=== PATIENT | female | born 1975 | race Caucasian/White ===

== ENCOUNTER 2016-08-27 19:26 | Emergency (ER) | payer OTHER ==
--- NOTE | 2016-08-27 22:27 | DIAGNOSTIC IMAGING REPORT ---
PROCEDURE: XR CHEST 2 VIEW INDICATION: CHEST PAIN TECHNIQUE: PA and lateral views. COMPARISON: None. FINDINGS: Allowing for overlying wires and electrodes, lungs are clear. Heart and mediastinum are normal. Thorax is normal. IMPRESSION: 1. Negative chest.
--- NOTE | 2016-08-27 22:48 | ED ORDER SUMMARY ---
..... Patient: JOSE SPRING V OrderSheet [facility] VisitID: [id number] [address] [place] [address] 41y, F Registration Date/Time: 08/27/2016 ORDER SHEET Weight: 108.8 kg (stated) Allergies: PredniSONE, Sulfa Drugs GENERAL ORDERS: EKG - ER Stat (19:35 08/27/2016 Herbie R.N. verbal order read back to Sindy COTTRELL) (19:45 [employer] ER Wearing Apparel Assembler) CBC w Diff Urgent (19:55 08/27/2016 Herbie R.N. verbal order read back to Sindy COTTRELL) (19:56 Herbie R.N.) CMP Urgent (19:55 08/27/2016 Herbie R.N. verbal order read back to Sindy COTTRELL) (19:56 Herbie R.N.) Cardiac Panel Stat (19:55 08/27/2016 Herbie R.N. verbal order read back to Sindy COTTRELL) (19:56 Herbie R.N.) TSH Urgent (20:57 08/27/2016 PHutchinson DO) (21:04 [facility] ER Tech1) D-Dimer Urgent (21:04 08/27/2016 PHutchinson DO) (21:04 [facility] ER Tech1) Chest 2V Urgent (21:04 08/27/2016 PHutchinson DO) (Ack 21:06 [facility] ER Tech1) (21:21 RFay) Rapid Influenza Screen (Nasal Pharyngeal) (CONCILIATOR swab) Urgent (22:46 08/27/2016 PHutchinson DO) (Ack 22:51 [facility] ER Wearing Apparel Assembler) (23:06 [facility] Assembl[facility]) MEDICATION ORDERS: - (Tamiflu 75mg po) (23:09 08/27/2016 PHutchinson DO) (23:32 Herbie R.N.) IV FLUIDS: IV Saline Lock (19:55 08/27/2016 Herbie R.N. verbal order read back to Sindy COTTRELL) (19:56 Herbie R.N.) ORDER SHEET NOTES: [Electronically signed by Hola Cook R.N. (23:38 08/27/2016)] [Electronically signed by Timmy Gao DO (05:25 08/28/2016)] [Electronically locked/signed by Hola Cook R.N. (:38 08/27/2016)]
--- NOTE | 2016-08-27 22:48 | ED NURSING NOTES ---
Clinical Report - Nurses [facility] [address] [place] [address] 08/27/2016 19:27 [id number] Triage time 19:38 Aug 27 2016. Chief Complaint: CHEST PAIN. Alert. SARAH COMA SCORE: Sarah Coma Scale: 15- eyes open spontaneously (4); best verbal response- oriented x 4 (5); best motor response- obeys commands (6). --19:53 Hola Cook R.N. 19:38 08/27/16. BP: 138/70. HR: 101. RR: 16. O2 saturation: 99% on room air. Temp: 100.3 F (oral). Pain level now: 6/10. Additional comments: Substernal. --19:53 Hola Cook R.N. Weight: 108.8 kg stated. Height/Length: 66 inches Per Patient. BMI: 38.7. --19:41 Hola Cook R.N. Medications Lisinopril Oral 40 mg, daily. Verapamil HCl 120 mg , daily. Vitamins/Minerals Oral. --19:42 Hola Cook R.N. BusPIRone HCl Oral. FLUoxetine HCl Oral. --19:43 Hola Cook R.N. Levothyroxine Sodium Oral. --19:43 Hola Cook R.N. Albuterol Sulfate Inhalation. Probiotic Daily Oral. --19:44 Hola Cook R.N. Flonase Nasal. Guaifenesin-Codeine Oral. Naproxen Oral. --19:46 Hola Cook R.N. Allergies PredniSONE. (flluid around brain) Sulfa Drugs.(Anaphylaxis) --19:42 Hola Cook R.N. Medication/allergy information source: the patient. --19:53 Hola Cook R.N. History Arrived by private vehicle. Historian: patient. Accompanied by spouse. Primary physician (Shi Azevedo Everett). ( Chest Pain). This started just prior to arrival. Treatment CHIP SEPARATOR: None. PAST MEDICAL HX: Hypertension. Immunizations: status is unknown. Last normal menstrual period was 4 weeks ago. Denies current . SOCIAL HX: Smoker- current status unknown. Alcohol use; consumes one liquor drink weekly. No drug use. No infectious disease exposure. ABUSE ASSESSMENT: No report of abuse. FALL RISK ASSESSMENT: Fall risk assessment completed. No fall risk identified. NUTRITIONAL RISK ASSESSMENT: The nutritional risk assessment revealed no deficiencies. FUNCTIONAL ASSESSMENT: Functional assessment: no impairments noted. LEARNING NEEDS ASSESSMENT: The learning needs assessment revealed no barriers. SKIN INTEGRITY ASSESSMENT: Skin integrity risk assessment completed. No skin integrity risk identified. --19:53 Hola Cook R.N. PROBLEMS: Thyroid Disease. --19:49 Hola Cook R.N. ADDITIONAL SURGERIES: Cholecystectomy. Thyroid Surgery. Tubal Ligation. --19:49 Hola Cook R.N. Interventions ID band on patient. To treatment room. --19:53 Hola Cook R.N. NURSING PROGRESS NOTES 19:45 08/27/2016 Site #1 started via IV in the right antecubital space with an 20g angiocath, with aseptic technique and good blood return; one attempt. Blood drawn: rainbow set. Labeled in the presence of the patient and sent to the lab. Saline lock flushed with 10 mL saline (start by Hola Gibbs RN). --19:55 Hola Cook R.N. 20:15 08/27/16. BP: 123/65. HR: 97. RR: 18. O2 saturation: 98% on room air. --22:17 Hola Cook R.N. 21:00 08/27/16. BP: 120/79. HR: 93 (regular and normal rate). RR: 19. O2 saturation: 99% on room air. --22:19 Hola Cook R.N. 22:00 08/27/16. BP: 120/56. HR: 89. RR: 20. O2 saturation: 99% on room air. Temp: 99.6 F. --22:20 Hola Cook R.N. ED physician notified. Notified (FLU B +). --23:06 Eliecer Mcarthur, RITESH Mainstreaming Facilitator 22:55 08/27/2016 Tamiflu * PO 75 mg --23:32 Hola Cook R.N. DISPOSITION / DISCHARGE 22:55 08/27/16. BP: 116/54. HR: 93. RR: 18. O2 saturation: 99% on room air. Temp: 99.3 F (oral). Pain level now: 0/10. --23:35 oHla Cook R.N. Departure time: 2300. --23:36 Hola Cook R.N. 23:00. No learning barriers present. Discharge instructions provided and reviewed with the patient. Reviewed medication(s) dosing information (prescription given to pt). Reviewed referral to family practice. Patient verbalized understanding. Written instructions provided in Slovenian. The patient was discharged by the physician. She was discharged home and accompanied by spouse. She left the Emergency Department ambulatory and via private vehicle. Patient driving. --23:37 Hola Cook R.N. Locked/Released at 08/27/2016 23:38 by Hola Cook R.N.
--- NOTE | 2016-08-27 22:48 | ED CLINICAL REPORT ---
Clinical Report - Physicians/Mid Levels [facility] [address] [place] [address] 08/27/2016 19:27 Patient: JOSE SPRING V Time Seen: 20:52. Arrived- By private vehicle. Historian- patient. HISTORY OF PRESENT ILLNESS Chief Complaint: CHEST DISCOMFORT. At its maximum, severity described as moderate. When seen in the E.D., severity described as moderate. Modifying factors- worsened by movement. Relieved by rest. ("pushing on it" / massage has made it worse). Not worsened by deep breaths. This started just prior to arrival and is still present. It was gradual in onset and has been waxing/waning. Onset during light activity. It is described as dull. Quality not described as well localized and it is described as located in the central chest area. No radiation. No nausea, vomiting, difficulty breathing or diaphoresis. Similar symptoms previously: Recent medical care: The patient was seen recently in a clinic. Seen for similar symptoms. REVIEW OF SYSTEMS Last normal menstrual period was 4 weeks ago. No fever, chills, cough, pedal edema or calf pain. No fainting episodes, headache, sore throat, blurred vision or abdominal pain. No black stools, difficulty with urination, skin rash, enlarged lymph nodes or joint pain. No bloody stools. The patient has had moderate, intermittent palpitations. The palpitations have lasted only minutes. The palpitations seem rapid. All systems otherwise negative, except as recorded above. PAST HISTORY Primary physician (Shi Azevedo Everett) Anxiety with panic attacks. Depression. Thyroid Disease Hypertension. Asthma. Syncopal episode. Environmental allergies SURGERY HX: Cholecystectomy Thyroid Surgery. Tubal Ligation. Ankle surgery. Heel spur and Radha's reconstruction. Dental surgery / wisdom teeth extraction. Medications: Flonase Nasal. Guaifenesin-Codeine Oral. Naproxen Oral. Albuterol Sulfate Inhalation. Probiotic Daily Oral. Levothyroxine Sodium Oral. BusPIRone HCl Oral. FLUoxetine HCl Oral. Lisinopril Oral 40 mg, daily. Verapamil HCl 120 mg , daily. Vitamins/Minerals Oral. Allergies: PredniSONE. (flluid around brain) Sulfa Drugs.(Anaphylaxis). SOCIAL HISTORY Occasional alcohol use. No drug use. Is a local resident. FAMILY HISTORY Diabetes in first-degree relative (mother); hypertension in first-degree relative (mother); cancer in first-degree relative (mother) and grandparent. Father had DVT. ADDITIONAL NOTES The nursing notes have been reviewed. PHYSICAL EXAM Vital Signs: 08/27/2016 19:38 BP: 138/70. HR: 101. RR: 16. O2 saturation: 99%. Temp: 100.3 F. Pain level now: 01/27. Appearance: Alert. Oriented X3. Patient in mild distress. Eyes: Eyes normal inspection. No scleral icterus or pale conjunctivae. ENT: Pharynx normal. No pharyngeal erythema or tonsillar exudate. The mucous membranes are not dry. Neck: Normal inspection. Neck supple. CVS: Tachycardia. Heart sounds normal. Pulses normal. Respiratory: No respiratory distress. Breath sounds normal. Abdomen: Soft and nontender. Back: Normal external inspection. Skin: Skin warm and dry. Normal skin color. No rash. Normal skin turgor. Extremities: Extremities exhibit normal ROM. No lower extremity edema. Neuro: Oriented X 3. No motor deficit. LABS, X-RAYS, AND EKG EKG: EKG time: (19:42). Normal sinus rhythm. Rate: 100. Normal P waves. Normal CRISTIANA. Normal QRS complex. Normal axis. Normal ST and T waves. The study has been interpreted contemporaneously by me. The EKG appears to be a good tracing. Rhythm Strip #1: Normal sinus rhythm. Regular rhythm. Narrow QRS complexes. Chest X-ray: No acute disease. Normal lung markings present. Normal heart size. Mediastinum normal. Great vessels normal. No infiltrate. Views: PA and lateral. Technique: good. The X-rays were interpreted contemporaneously by me. The X-rays were discussed with the radiologist (via PACS note+). Laboratory Tests: CBC w Diff: (RAUL: 08/27/2016 19:48) ( MsgRcvd 08/27/2016 21:22) Final results Test Result Flag Units (Reference) WHITE BLOOD COUNT 7.4 K/uL (4.5-11.5) RED BLOOD COUNT 4.44 M/uL (4.00-5.20) HEMOGLOBIN 9.4 L gm/dL (12.0-16.0) HEMATOCRIT 30.5 L % (36.0-46.0) MEAN CELL VOLUME 69 L fL (80-100) MEAN CORPUSCULAR HGB 21 L pg (26-34) MEAN CORPUSCULAR HGB CONC 31 g/dL (31-37) RED CELL DISTRIBUTION WIDTH 16.2 H % (11.6-14.8) PLATELET COUNT 453 H K/uL (150-400) NEUTROPHIL % 70.9 % (50-75) LYMPH % 16.3 L % (25-40) MONO % 7.0 % (3-14) EOSINOPHIL % 4.8 H % (0-4) BASOPHIL % 1.0 % (0-2) RBC MORPHOLOGY 2+ ANISOCYTOSIS~~2+ SCHISTOCYTES~~3+ MICROCYTOSIS~~1+ OVALOCYTES~~2+ HYPOCHROMIA~~PLTS [facility] [id number]: (RAUL: 08/27/2016 19:18) ( MsgRcvd 08/27/2016 21:25) Final results Test Result Flag Units (Reference) D-DIMER QUANTITATIVE < 0.27 L ug/mLFEU (0.27-0.52) The primary value of this quantitative assay relates toits negative predictive value (i.e. exclusion) of pulmonaryembolism/deep vein thrombosis/DIC.Elevated levels of d-dimer may also occur with:, age, cancer, inflammation, liver disease,post-op, infection, hematoma, coronary disease, peripheralarteriopathy, bleeding disorders and thrombolytic treatment.Results should be correlated with other clinical andradiological data.Testing Methodology: Latex Immunoassay TSH: (RAUL: 08/27/2016 19:18) ( MsgRcvd 08/27/2016 21:57) Final results Test Result Flag Units (Reference) THYROID STIMULATING HORMONE 1.818 uIU/mL (0.34-3.74) CHEM 13 PANEL: (RAUL: 08/27/2016 19:48) ( MsgRcvd 08/27/2016 21:08) Final results Test Result Flag Units (Reference) GLUCOSE 130 H mg/dL (70-110) BUN 12 mg/dL (7-18) CREATININE 0.8 mg/dL (0.6-1.3) Estimated GFR >60 mL/min Estimated GFR- >60 mL/min Note: Persistent reduction over 3 months in eGFR<60 mL/min/1.73 m2 defines CKD. Patients with eGFR values>=60 mL/min/1.73 m2 may also have CKD if evidence ofpersistent proteinuria. Additional information may be foundat www.kidney.org. SODIUM 144 mmol/L (136-145) POTASSIUM 3.7 mmol/L (3.5-5.1) CHLORIDE 102 mmol/L (98-107) CARBON DIOXIDE 26 mmol/L (21-32) CALCIUM 8.5 mg/dL (8.5-10.1) TOTAL PROTEIN 7.6 g/dL (6.4-8.2) ALBUMIN 3.8 g/dL (3.3-5.0) BILIRUBIN, TOTAL 0.2 mg/dL (0.0-1.0) ALKALINE PHOSPHATASE 53 U/L (46-116) AST (SGOT) 12 L U/L (15-37) ALT (SGPT) 23 U/L (12-78) MAGNESIUM 2.1 mg/dL (1.8-2.4) CPK 72 U/L (24-260) TROPONIN I <0.05 L ng/mL (0.00-1.5) TROPONIN REFERENCE RANGE:<0.1 NEGATIVE0.1-1.5 INDETERMINANT>1.5 POSITIVE Rapid Influenza Screen: (RAUL: 08/27/2016 22:50) ( MsgRcvd 08/27/2016 23:05) Final results SPECIMEN DESCRIPTION: MEDICAL RECORDS AUDITOR SWAB Test Result Flag Units (Reference) RAPID INFLUENZA SCREEN CALLED TO: JOSE FERRER -- DATE: 08/27/16 INFLUENZA A: NEGATIVE SCREEN FOR INFLUENZA A INFLUENZA B: POSITIVE SCREEN FOR INFLUENZA B . (Trop I - done in clinic prior to arrival = <0.1). Pulse Oximetry: 08/27/2016 19:38 O2 saturation: 99%. (FIO2 - room air). Interpretation: normal. PROGRESS AND PROCEDURES Course of Care: Trop I x 2 neg. Unremarkable CXR and ECG. Pt with recent "deep tissue massage" and clear chest wall tenderness. Also with long history of anxiety and panic. No signs of DVT or PE and d-dimer neg. Pt has borderline fever. Flu screen is positive. She has mild asthma and a son with cerebral palsy. I will begin Tamiflu after discussion with pt regarding CDC recommendations and risks / benefits. Patient/family counseled. Old ED records reviewed. Disposition: Discharged. Condition: stable and improved. CLINICAL IMPRESSION Chest wall pain .12 lead EKG performed. Benign palpitations Moderate acute anemia. Influenza type B with upper respiratory infection. Possible fever of unclear etiology consider very early influenza (doubt urinary tract infection). INSTRUCTIONS Do not work for three days. Drink plenty of fluids. No alcohol until released. Warnings: Further evaluation is necessary in order to recheck abnormal lab, obtain test results, conduct further tests and assess the possibility of serious illness. It is very important to follow up with a physician. GENERAL WARNINGS: Return or contact your physician immediately if your condition worsens or changes unexpectedly, if not improving as expected, or if other problems arise. If you have a persistently elevated heart rate or any concerning symptoms, please return to the Emergency Department. Your Current Medications: CONTINUE TAKING THE FOLLOWING MEDICATIONS: Albuterol Sulfate Inhalation. BusPIRone HCl Oral. Flonase Nasal. FLUoxetine HCl Oral. Guaifenesin-Codeine Oral. Levothyroxine Sodium Oral. Lisinopril Oral : 40 mg daily. Naproxen Oral. Probiotic Daily Oral. Verapamil HCl : 120 mg daily. Vitamins/Minerals Oral. Prescription Medications: Tamiflu 75 mg: take 1 capsule orally every 12 hours for 5 days. Dispense ten (10). No refills. Substitution is permissible. OTC Medications: Take aspirin according to label instructions. Available over the counter. (daily dose = 325 mg) Follow-up: Follow up with your doctor tomorrow. (Electronically signed by Timmy Gao DO 08/28/2016 5:25)
--- NOTE | 2016-08-27 22:48 | ED NURSING NOTES ---
Clinical Report - Nurses [facility] [address] [place] [address] 08/27/2016 19:27 [id number] Triage time 19:38 Aug 27 2016. Chief Complaint: CHEST PAIN. Alert. SARAH COMA SCORE: Sarah Coma Scale: 15- eyes open spontaneously (4); best verbal response- oriented x 4 (5); best motor response- obeys commands (6). --19:53 Hola Cook R.N. 19:38 08/27/16. BP: 138/70. HR: 101. RR: 16. O2 saturation: 99% on room air. Temp: 100.3 F (oral). Pain level now: 6/10. Additional comments: Substernal. --19:53 Hola Cook R.N. Weight: 108.8 kg stated. Height/Length: 66 inches Per Patient. BMI: 38.7. --19:41 Hola Cook R.N. Medications Lisinopril Oral 40 mg, daily. Verapamil HCl 120 mg , daily. Vitamins/Minerals Oral. --19:42 Hola Cook R.N. BusPIRone HCl Oral. FLUoxetine HCl Oral. --19:43 Hola Cook R.N. Levothyroxine Sodium Oral. --19:43 Hola Cook R.N. Albuterol Sulfate Inhalation. Probiotic Daily Oral. --19:44 Hola Cook R.N. Flonase Nasal. Guaifenesin-Codeine Oral. Naproxen Oral. --19:46 Hola Cook R.N. Allergies PredniSONE. (flluid around brain) Sulfa Drugs.(Anaphylaxis) --19:42 Hola Cook R.N. Medication/allergy information source: the patient. --19:53 Hola Cook R.N. History Arrived by private vehicle. Historian: patient. Accompanied by spouse. Primary physician (Shi Azevedo Everett). ( Chest Pain). This started just prior to arrival. 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 PAST MEDICAL HX: Hypertension. Immunizations: status is unknown. Last normal menstrual period was 4 weeks ago. Denies current . SOCIAL HX: Smoker- current status unknown. Alcohol use; consumes one liquor drink weekly. No drug use. No infectious disease exposure. ABUSE ASSESSMENT: No report of abuse. FALL RISK ASSESSMENT: Fall risk assessment completed. No fall risk identified. NUTRITIONAL RISK ASSESSMENT: The nutritional risk assessment revealed no deficiencies. FUNCTIONAL ASSESSMENT: Functional assessment: no impairments noted. LEARNING NEEDS ASSESSMENT: The learning needs assessment revealed no barriers. SKIN INTEGRITY ASSESSMENT: Skin integrity risk assessment completed. No skin integrity risk identified. --19:53 Hola Cook R.N. PROBLEMS: Thyroid Disease. --19:49 Hola Cook R.N. ADDITIONAL SURGERIES: Cholecystectomy. Thyroid Surgery. Tubal Ligation. --19:49 Hola Cook R.N. Interventions ID band on patient. To treatment room. --19:53 Hola Cook R.N. NURSING PROGRESS NOTES 19:45 08/27/2016 Site #1 started via IV in the right antecubital space with an 20g angiocath, with aseptic technique and good blood return; one attempt. Blood drawn: rainbow set. Labeled in the presence of the patient and sent to the lab. Saline lock flushed with 10 mL saline (start by Hola Gibbs RN). --19:55 Hola Cook R.N. 20:15 08/27/16. BP: 123/65. HR: 97. RR: 18. O2 saturation: 98% on room air. --22:17 Hola Cook R.N. 21:00 08/27/16. BP: 120/79. HR: 93 (regular and normal rate). RR: 19. O2 saturation: 99% on room air. --22:19 Hola Cook R.N. 22:00 08/27/16. BP: 120/56. HR: 89. RR: 20. O2 saturation: 99% on room air. Temp: 99.6 F. --22:20 Hola Cook R.N. ED physician notified. Notified (FLU B +). --23:06 Eliecer Mcarthur, RITESH Balance Wheel Arm Burnisher 22:55 08/27/2016 Tamiflu * PO 75 mg --23:32 Hola Cook R.N. DISPOSITION / DISCHARGE 22:55 08/27/16. BP: 116/54. HR: 93. RR: 18. O2 saturation: 99% on room air. Temp: 99.3 F (oral). Pain level now: 0/10. --23:35 oHla Cook R.N. Departure time: 2300. --23:36 Hola Cook R.N. 23:00. No learning barriers present. Discharge instructions provided and reviewed with the patient. Reviewed medication(s) dosing information (prescription given to pt). Reviewed referral to family practice. Patient verbalized understanding. Written instructions provided in Icelandic. The patient was discharged by the physician. She was discharged home and accompanied by spouse. She left the Emergency Department ambulatory and via private vehicle. Patient driving. --23:37 Hola Cook R.N. Locked/Released at 08/27/2016 23:38 by Hola Cook R.N.
--- NOTE | 2016-08-27 22:48 | ED ORDER SUMMARY ---
..... Patient: JOSE SPRING V OrderSheet [facility] VisitID: [id number] [address] [place] [address] 41y, F Registration Date/Time: 08/27/2016 ORDER SHEET Weight: 108.8 kg (stated) Allergies: PredniSONE, Sulfa Drugs GENERAL ORDERS: EKG - ER Stat (19:35 08/27/2016 Herbie R.N. verbal order read back to Sindy COTTRELL) (19:45 [employer] ER Biomedical Field Service Engineer) CBC w Diff Urgent (19:55 08/27/2016 Herbie R.N. verbal order read back to Sindy COTTRELL) (19:56 Herbie R.N.) CMP Urgent (19:55 08/27/2016 Herbie R.N. verbal order read back to Sindy COTTRELL) (19:56 Herbie R.N.) Cardiac Panel Stat (19:55 08/27/2016 Herbie R.N. verbal order read back to Sindy COTTRELL) (19:56 Herbie R.N.) TSH Urgent (20:57 08/27/2016 PHutchinson DO) (21:04 [facility] ER Tech1) D-Dimer Urgent (21:04 08/27/2016 PHutchinson DO) (21:04 [facility] ER Tech1) Chest 2V Urgent (21:04 08/27/2016 PHutchinson DO) (Ack 21:06 [facility] ER Tech1) (21:21 RFay) Rapid Influenza Screen (Nasal Pharyngeal) (REED OR WIND INSTRUMENT REPAIRER swab) Urgent (22:46 08/27/2016 PHutchinson DO) (Ack 22:51 CHagerty ER Biomedical Field Service Engineer) ([facility] MEDICATION ORDERS: - (Tamiflu 75mg po) (23:09 08/27/2016 PHutchinson DO) (23:32 Herbie R.N.) IV FLUIDS: IV Saline Lock (19:55 08/27/2016 Herbie R.N. verbal order read back to Sindy COTTRELL) (19:56 Herbie R.N.) ORDER SHEET NOTES: [Electronically signed by Hola Cook R.N. (23:38 08/27/2016)] [Electronically signed by Timmy Gao DO (05:25 08/28/2016)] [Electronically locked/signed by Hola Cook R.N. (:38 08/27/2016)]
--- NOTE | 2016-08-28 05:25 | ED MED RECONCILIATION SUMMARY ---
Patient: JOSE SPRING V Medication Reconciliation Report [facility] VisitID: [id number] [address] [place] [address] 41y, F Registration Date/Time: 08/27/2016 Weight: 108.8 kg Height/Length: 66 in. BMI: 38.7 ALLERGIES: PredniSONE, Sulfa Drugs The patient's Home Medications are listed below: CONTINUE TAKING THE FOLLOWING MEDICATIONS: Albuterol Sulfate Inhalation BusPIRone HCl Oral Flonase Nasal FLUoxetine HCl Oral Guaifenesin-Codeine Oral Levothyroxine Sodium Oral Lisinopril Oral 40 mg, daily Naproxen Oral Probiotic Daily Oral Verapamil HCl 120 mg , daily Vitamins/Minerals Oral The source(s) of the original Home Medication information: patient The following Medications were given to the patient in the Emergency Department: Tamiflu PO 75 mg, administered: 08/27/2016 10:55:00 PM The following Medications were prescribed to the patient: Take aspirin according to label instructions. Available over the counter.(daily dose = 325 mg) -- Timmy Gao DO Tamiflu 75 mg: take 1 capsule orally every 12 hours for 5 days. Dispense ten (10). No refills. Substitution is permissible. -- Timmy Gao DO
--- NOTE | 2016-08-28 05:25 | ED MED RECONCILIATION SUMMARY ---
Patient: JOSE SPRING V Medication Reconciliation Report [facility] VisitID: [id number] [address] [place] [address] 41y, F Registration Date/Time: 08/27/2016 Weight: 108.8 kg Height/Length: 66 in. BMI: 38.7 ALLERGIES: PredniSONE, Sulfa Drugs The patient's Home Medications are listed below: CONTINUE TAKING THE FOLLOWING MEDICATIONS: Albuterol Sulfate Inhalation BusPIRone HCl Oral Flonase Nasal FLUoxetine HCl Oral Guaifenesin-Codeine Oral Levothyroxine Sodium Oral Lisinopril Oral 40 mg, daily Naproxen Oral Probiotic Daily Oral Verapamil HCl 120 mg , daily Vitamins/Minerals Oral The source(s) of the original Home Medication information: patient The following Medications were given to the patient in the Emergency Department: Tamiflu PO 75 mg, administered: 08/27/2016 10:55:00 PM The following Medications were prescribed to the patient: Take aspirin according to label instructions. Available over the counter.(daily dose = 325 mg) -- Timmy Gao DO Tamiflu 75 mg: take 1 capsule orally every 12 hours for 5 days. Dispense ten (10). No refills. Substitution is permissible. -- Timmy Gao DO
--- NOTE | 2016-08-28 05:25 | ED DISCHARGE INSTRUCTIONS ---
Patient: JOSE SPRING V General Instructions [facility] VisitID: [id number] [address] [place] [address] 41y, F Registration Date/Time: 08/27/2016 Chest wall pain .12 lead EKG performed. Benign palpitations Moderate acute anemia. Influenza type B with upper respiratory infection. INSTRUCTIONS Do not work for three days. Drink plenty of fluids. No alcohol until released. Warnings: Further evaluation is necessary in order to recheck abnormal lab, obtain test results, conduct further tests and assess the possibility of serious illness. It is very important to follow up with a physician. GENERAL WARNINGS: Return or contact your physician immediately if your condition worsens or changes unexpectedly, if not improving as expected, or if other problems arise. If you have a persistently elevated heart rate or any concerning symptoms, please return to the Emergency Department. Your Current Medications: CONTINUE TAKING THE FOLLOWING MEDICATIONS: Albuterol Sulfate Inhalation. BusPIRone HCl Oral. Flonase Nasal. FLUoxetine HCl Oral. Guaifenesin-Codeine Oral. Levothyroxine Sodium Oral. Lisinopril Oral : 40 mg daily. Naproxen Oral. Probiotic Daily Oral. Verapamil HCl : 120 mg daily. Vitamins/Minerals Oral. Prescription Medications: Tamiflu 75 mg: take 1 capsule orally every 12 hours for 5 days. Dispense ten (10). No refills. Substitution is permissible. OTC Medications: Take aspirin according to label instructions. Available over the counter. (daily dose = 325 mg) Follow-up: Follow up with your doctor tomorrow. ADDITIONAL INFORMATION Chest Strain A strain of the chest is due to stretching and tearing of the muscle fibers between the ribs. This may occur as a result of severe coughing, strenuous lifting or twisting injuries of the upper back. This usually causes increased pain with movement or deep breathing. This may take a few days to a few weeks to heal. Home Care: Rest. Avoid heavy lifting or strenuous exertion. Avoid any activity that causes pain. If you have a severe cough, use a cough syrup such as Robitussin DM (containing dextromethorphan) unless another cough medicine was prescribed. You may use acetaminophen (Tylenol) or ibuprofen (Motrin, Advil) to control pain, unless another medicine was prescribed. [ NOTE: If you have chronic liver or kidney disease or ever had a stomach ulcer or GI bleeding, talk with your doctor before using these medicines.] Follow Up with your doctor as directed. Get Prompt Medical Attention if any of the following occur: A change in the type of pain: if it feels different, becomes more severe, lasts longer, or begins to spread into your shoulder, arm, neck, jaw or back Shortness of breath or increased pain with breathing Cough with dark colored sputum (phlegm) or blood Weakness, dizziness, or fainting Fever of 100.4F (38C) or higher, or as directed by your healthcare provider Heart Palpitations Palpitations refers to the feeling that your heart is beating hard, fast or irregular. Some people describe it as "pounding" or "skipped beats". Palpitations may occur in persons with heart disease, but can also occur in healthy persons. Heart-Related Causes: Arrhythmia (a change from the heart's normal rhythm) Disease of the heart valves Slz-Xilpy-Pyyoryv Causes: Certain medicines (such as asthma inhalers and decongestants) Some herbal supplements, energy drinks and pills, and weight loss pills Illegal stimulant drugs (such as cocaine, crank, methamphetamine, PCP) Caffeine, alcohol and tobacco Medical conditions such as thyroid disease, anemia, anxiety and panic disorder Sometimes the cause cannot be found. Home Care: Avoid excess caffeine, alcohol, tobacco and any stimulant drugs. Tell your doctor about any prescription or pyya-coo-iulerbc or herbal medicines you take. Follow Up with your doctor or as advised by our staff. Get Prompt Medical Attention if any of the following occur together with palpitations: Weakness, dizziness, light-headed or fainting Chest pain or shortness of breath Rapid heart rate (over 120 beats per minute, at rest) Palpitations that lasts over 20 minutes Weakness of an arm or leg or one side of the face Difficulty with speech or vision Influenza (Adult) Influenza, also called the flu, is a viral illness that affects the air passages of the lungs. It differs from the common cold. It is highly contagious. It may be spread through the air by coughing and sneezing or by direct contact (touching the sick person and then touching your own eyes, nose or mouth). Illness starts 1-3 days after exposure and lasts for 1-2 weeks. Antibiotics are usually not needed unless a complication appears (ear or sinus infection or pneumonia). Symptoms may be mild or severe and can include extreme tiredness (wanting to stay in bed all day), chills, fevers, muscle aching, soreness with eye movement, headache, and a dry, hacking cough. Home Care: Avoid exposure to cigarette smoke (yours or others). Tylenol or ibuprofen (Advil) will help fever, muscle aching, and headache. To avoid risk of liver injury, aspirin should not be used in children and teenagers under 18 with this illness. Nausea and loss of appetite are common. A light diet is recommended. Avoid dehydration by drinking 6-8 glasses of fluids per day (water, sport drinks like Gatorade, soft drinks without caffeine, juices, tea, soup, etc.). Extra fluids will also help loosen secretions in the nose and lungs. Kqaf-xiz-vmbpseu cold medicines will not shorten the duration of the illness but may be helpful for the following symptoms: cough (Robitussin DM); sore throat (Chloraseptic lozenges or spray); nasal and sinus congestion (Actifed or Sudafed). [NOTE: Do not use decongestants if you have high blood pressure.] Stay home until your fever has been gone for at least 24 hours (without the use of fever-reducing medications such as ibuprofen). Follow Up with your doctor or as directed by our staff if you are not improving over the next week. Note: If you are age 65 or older, or if you have chronic asthma or COPD, we recommend a pneumococcal vaccinationevery five years. All adults shouldreceive a yearly influenza vaccination every . Ask your doctor about this. Get Prompt Medical Attention if any of the following occur: Cough with lots of colored sputum (mucus) or blood in your sputum Chest pain, shortness of breath, wheezing, or difficulty breathing Severe headache, face, neck or ear pain New rash Fever of 100.4F (38C) oral or higher, not better with fever medication Confusion, behavior change or seizure Severe weakness or dizziness Oseltamivir Phosphate Oral capsule What is this medicine? OSELTAMIVIR (os el SPEARS i vir) is an antiviral medicine. It is used to prevent and to treat some kinds of influenza or the flu. It will not work for colds or other viral infections. How should I use this medicine? Take this medicine by mouth with a glass of water. Follow the directions on the prescription label. Start this medicine at the first sign of flu symptoms. You can take it with or without food. If it upsets your stomach, take it with food. Take your medicine at regular intervals. Do not take your medicine more often than directed. Take all of your medicine as directed even if you think you are better. Do not skip doses or stop your medicine early. Talk to your putty mixer and applier regarding the use of this medicine in children. While this drug may be prescribed for children as young as 14 days for selected conditions, precautions do apply. What side effects may I notice from receiving this medicine? Side effects that you should report to your doctor or health infant caregiver as soon as possible: allergic reactions like skin rash, itching or hives, swelling of the face, lips, or tongue anxiety, confusion, unusual behavior breathing problems hallucination, loss of contact with reality redness, blistering, peeling or loosening of the skin, including inside the mouth seizures Side effects that usually do not require medical attention (report to your doctor or health infant caregiver if they continue or are bothersome): cough diarrhea dizziness headache nausea, vomiting stomach pain What may interact with this medicine? Interactions are not expected. What if I miss a dose? If you miss a dose, take it as soon as you remember. If it is almost time for your next dose (within 2 hours), take only that dose. Do not take double or extra doses. Where should I keep my medicine? Keep out of the reach of children. Store at room temperature between 15 and 30 degrees C (59 and 86 degrees F). Throw away any unused medicine after the expiration date. What should I tell my health care provider before I take this medicine? They need to know if you have any of the following conditions: heart disease immune system problems kidney disease liver disease lung disease an unusual or allergic reaction to oseltamivir, other medicines, foods, dyes, or preservatives or trying to get breast-feeding What should I watch for while using this medicine? Visit your doctor or health infant caregiver for regular check ups. Tell your doctor if your symptoms do not start to get better or if they get worse. If you have the flu, you may be at an increased risk of developing seizures, confusion, or abnormal behavior. This occurs early in the illness, and more frequently in children and teens. These events are not common, but may result in accidental injury to the patient. Families and caregivers of patients should watch for signs of unusual behavior and contact a doctor or health infant caregiver right away if the patient shows signs of unusual behavior. This medicine is not a substitute for the flu shot. Talk to your doctor each year about an annual flu shot. You have been given the following additional information: Chest Wall Strain Palpitations Influenza (Adult) Oseltamivir Phosphate Oral capsule Do not work for three days. (Electronically signed by Timmy Gao DO 08/28/2016 5:25)
--- NOTE | 2016-08-28 05:25 | ED MAR SUMMARY ---
..... Medication Administration Record [facility] [address] [place] [address] Patient: JOSE SPRING V Visit ID: [id number] 41y, F Weight: 108.8 kg Height/Length: 66 in BMI: 38.7 ALLERGIES: PredniSONE, Sulfa Drugs Given 22:55 08/27/2016 Hola Cook R.N. Medication Administered: Tamiflu *, Dose: 75 mg * PO. Medication Ordered: - (Tamiflu 75mg po).
--- NOTE | 2016-08-28 05:25 | ED MAR SUMMARY ---
..... Medication Administration Record [facility] [address] [place] [address] Patient: JOSE SPRING V Visit ID: [id number] 41y, F Weight: 108.8 kg Height/Length: 66 in BMI: 38.7 ALLERGIES: PredniSONE, Sulfa Drugs Given 22:55 08/27/2016 Hola Cook R.N. Medication Administered: Tamiflu *, Dose: 75 mg * PO. Medication Ordered: - (Tamiflu 75mg po).
--- NOTE | 2016-08-28 05:25 | ED DISCHARGE INSTRUCTIONS ---
Patient: JOSE SPRING V General Instructions [facility] VisitID: [id number] [address] [place] [address] 41y, F Registration Date/Time: 08/27/2016 Chest wall pain .12 lead EKG performed. Benign palpitations Moderate acute anemia. Influenza type B with upper respiratory infection. INSTRUCTIONS Do not work for three days. Drink plenty of fluids. No alcohol until released. Warnings: Further evaluation is necessary in order to recheck abnormal lab, obtain test results, conduct further tests and assess the possibility of serious illness. It is very important to follow up with a physician. GENERAL WARNINGS: Return or contact your physician immediately if your condition worsens or changes unexpectedly, if not improving as expected, or if other problems arise. If you have a persistently elevated heart rate or any concerning symptoms, please return to the Emergency Department. Your Current Medications: CONTINUE TAKING THE FOLLOWING MEDICATIONS: Albuterol Sulfate Inhalation. BusPIRone HCl Oral. Flonase Nasal. FLUoxetine HCl Oral. Guaifenesin-Codeine Oral. Levothyroxine Sodium Oral. Lisinopril Oral : 40 mg daily. Naproxen Oral. Probiotic Daily Oral. Verapamil HCl : 120 mg daily. Vitamins/Minerals Oral. Prescription Medications: Tamiflu 75 mg: take 1 capsule orally every 12 hours for 5 days. Dispense ten (10). No refills. Substitution is permissible. OTC Medications: Take aspirin according to label instructions. Available over the counter. (daily dose = 325 mg) Follow-up: Follow up with your doctor tomorrow. ADDITIONAL INFORMATION Chest Strain A strain of the chest is due to stretching and tearing of the muscle fibers between the ribs. This may occur as a result of severe coughing, strenuous lifting or twisting injuries of the upper back. This usually causes increased pain with movement or deep breathing. This may take a few days to a few weeks to heal. Home Care: Rest. Avoid heavy lifting or strenuous exertion. Avoid any activity that causes pain. If you have a severe cough, use a cough syrup such as Robitussin DM (containing dextromethorphan) unless another cough medicine was prescribed. You may use acetaminophen (Tylenol) or ibuprofen (Motrin, Advil) to control pain, unless another medicine was prescribed. [ NOTE: If you have chronic liver or kidney disease or ever had a stomach ulcer or GI bleeding, talk with your doctor before using these medicines.] Follow Up with your doctor as directed. Get Prompt Medical Attention if any of the following occur: A change in the type of pain: if it feels different, becomes more severe, lasts longer, or begins to spread into your shoulder, arm, neck, jaw or back Shortness of breath or increased pain with breathing Cough with dark colored sputum (phlegm) or blood Weakness, dizziness, or fainting Fever of 100.4F (38C) or higher, or as directed by your healthcare provider Heart Palpitations Palpitations refers to the feeling that your heart is beating hard, fast or irregular. Some people describe it as "pounding" or "skipped beats". Palpitations may occur in persons with heart disease, but can also occur in healthy persons. Heart-Related Causes: Arrhythmia (a change from the heart's normal rhythm) Disease of the heart valves Dlf-Cldwu-Kdvbshy Causes: Certain medicines (such as asthma inhalers and decongestants) Some herbal supplements, energy drinks and pills, and weight loss pills Illegal stimulant drugs (such as cocaine, crank, methamphetamine, PCP) Caffeine, alcohol and tobacco Medical conditions such as thyroid disease, anemia, anxiety and panic disorder Sometimes the cause cannot be found. Home Care: Avoid excess caffeine, alcohol, tobacco and any stimulant drugs. Tell your doctor about any prescription or kdkr-fna-nfzxpoj or herbal medicines you take. Follow Up with your doctor or as advised by our staff. Get Prompt Medical Attention if any of the following occur together with palpitations: Weakness, dizziness, light-headed or fainting Chest pain or shortness of breath Rapid heart rate (over 120 beats per minute, at rest) Palpitations that lasts over 20 minutes Weakness of an arm or leg or one side of the face Difficulty with speech or vision Influenza (Adult) Influenza, also called the flu, is a viral illness that affects the air passages of the lungs. It differs from the common cold. It is highly contagious. It may be spread through the air by coughing and sneezing or by direct contact (touching the sick person and then touching your own eyes, nose or mouth). Illness starts 1-3 days after exposure and lasts for 1-2 weeks. Antibiotics are usually not needed unless a complication appears (ear or sinus infection or pneumonia). Symptoms may be mild or severe and can include extreme tiredness (wanting to stay in bed all day), chills, fevers, muscle aching, soreness with eye movement, headache, and a dry, hacking cough. Home Care: Avoid exposure to cigarette smoke (yours or others). Tylenol or ibuprofen (Advil) will help fever, muscle aching, and headache. To avoid risk of liver injury, aspirin should not be used in children and teenagers under 18 with this illness. Nausea and loss of appetite are common. A light diet is recommended. Avoid dehydration by drinking 6-8 glasses of fluids per day (water, sport drinks like Gatorade, soft drinks without caffeine, juices, tea, soup, etc.). Extra fluids will also help loosen secretions in the nose and lungs. Epdj-zkg-fgadixz cold medicines will not shorten the duration of the illness but may be helpful for the following symptoms: cough (Robitussin DM); sore throat (Chloraseptic lozenges or spray); nasal and sinus congestion (Actifed or Sudafed). [NOTE: Do not use decongestants if you have high blood pressure.] Stay home until your fever has been gone for at least 24 hours (without the use of fever-reducing medications such as ibuprofen). Follow Up with your doctor or as directed by our staff if you are not improving over the next week. Note: If you are age 65 or older, or if you have chronic asthma or COPD, we recommend a pneumococcal vaccinationevery five years. All adults shouldreceive a yearly influenza vaccination every . Ask your doctor about this. Get Prompt Medical Attention if any of the following occur: Cough with lots of colored sputum (mucus) or blood in your sputum Chest pain, shortness of breath, wheezing, or difficulty breathing Severe headache, face, neck or ear pain New rash Fever of 100.4F (38C) oral or higher, not better with fever medication Confusion, behavior change or seizure Severe weakness or dizziness Oseltamivir Phosphate Oral capsule What is this medicine? OSELTAMIVIR (os el SPEARS i vir) is an antiviral medicine. It is used to prevent and to treat some kinds of influenza or the flu. It will not work for colds or other viral infections. How should I use this medicine? Take this medicine by mouth with a glass of water. Follow the directions on the prescription label. Start this medicine at the first sign of flu symptoms. You can take it with or without food. If it upsets your stomach, take it with food. Take your medicine at regular intervals. Do not take your medicine more often than directed. Take all of your medicine as directed even if you think you are better. Do not skip doses or stop your medicine early. Talk to your employment instructional associate regarding the use of this medicine in children. While this drug may be prescribed for children as young as 14 days for selected conditions, precautions do apply. What side effects may I notice from receiving this medicine? Side effects that you should report to your doctor or health inpatient care manager rn as soon as possible: allergic reactions like skin rash, itching or hives, swelling of the face, lips, or tongue anxiety, confusion, unusual behavior breathing problems hallucination, loss of contact with reality redness, blistering, peeling or loosening of the skin, including inside the mouth seizures Side effects that usually do not require medical attention (report to your doctor or health inpatient care manager rn if they continue or are bothersome): cough diarrhea dizziness headache nausea, vomiting stomach pain What may interact with this medicine? Interactions are not expected. What if I miss a dose? If you miss a dose, take it as soon as you remember. If it is almost time for your next dose (within 2 hours), take only that dose. Do not take double or extra doses. Where should I keep my medicine? Keep out of the reach of children. Store at room temperature between 15 and 30 degrees C (59 and 86 degrees F). Throw away any unused medicine after the expiration date. What should I tell my health care provider before I take this medicine? They need to know if you have any of the following conditions: heart disease immune system problems kidney disease liver disease lung disease an unusual or allergic reaction to oseltamivir, other medicines, foods, dyes, or preservatives or trying to get breast-feeding What should I watch for while using this medicine? Visit your doctor or health inpatient care manager rn for regular check ups. Tell your doctor if your symptoms do not start to get better or if they get worse. If you have the flu, you may be at an increased risk of developing seizures, confusion, or abnormal behavior. This occurs early in the illness, and more frequently in children and teens. These events are not common, but may result in accidental injury to the patient. Families and caregivers of patients should watch for signs of unusual behavior and contact a doctor or health inpatient care manager rn right away if the patient shows signs of unusual behavior. This medicine is not a substitute for the flu shot. Talk to your doctor each year about an annual flu shot. You have been given the following additional information: Chest Wall Strain Palpitations Influenza (Adult) Oseltamivir Phosphate Oral capsule Do not work for three days. (Electronically signed by Timmy Gao DO 08/28/2016 5:25)
== END 2016-08-27 23:00 | disposition home or self-care (01) ==
LOC: ED SRH 19:26
DX: R07.89 Other chest pain (principal); D64.9 Anemia, unspecified; J10.1 Influenza due to other identified influenza virus with other respiratory manifestations; J06.9 Acute upper respiratory infection, unspecified; R00.2 Palpitations; I10 Essential (primary) hypertension; J45.909 Unspecified asthma, uncomplicated; E07.9 Disorder of thyroid, unspecified; Z79.899 Other long term (current) drug therapy; Z88.2 Allergy status to sulfonamides
CPT/HCPCS: 90100; 90616; 91400; 91556; 92610; 92720; 93140; 95059

== ENCOUNTER 2016-10-12 13:31 | Emergency (ER) | payer OTHER ==
--- NOTE | 2016-10-16 08:00 | ED NURSING NOTES ---
Clinical Report - Nurses [facility] [address] [place] [address] 10/12/2016 13:32 Patient: JOSE SPRING V [facility]#: [id number] TRIAGE Triage time 13:47 Oct 12 2016. Acuity: LEVEL 5. Chief Complaint: (Dr sent over due to critical H&H). 13:53 10/12/16. SEPSIS SCREEN: Sepsis Screen. Negative (no infection suspected/documented). SARAH COMA SCORE: Sarah Coma Scale: 15- eyes open spontaneously (4); best verbal response- oriented x 4 (5); best motor response- obeys commands (6). --13:53 Yuridia Pastrana R.N. 13:47 10/12/16. BP: 141/75 (regular adult cuff) taken on the left arm, while lying. HR: 89. RR: 18. O2 saturation: 99% on room air. Temp: 99.7 F (oral). Pain level now: 5/10. Additional comments: Body aches and dizzy with nausea. --13:53 Yuridia Pastrana R.N. Height/Length: 66 inches Per Patient. --13:47 Yuridia Pastrana R.N.. <<STRICKEN ENTRY-- Weight: 62.5 kg stated. BMI: 22.3. --END STRIKE>> Correction --13:47 Yuridia Pastrana R.N.. Weight: 107.9 kg stated. BMI: 38.4. --13:47 Yuridia Pastrana R.N. Medications Albuterol Sulfate Inhalation. BusPIRone HCl Oral. Flonase Nasal. FLUoxetine HCl Oral. --13:49 Yuridia Pastrana R.N. Guaifenesin-Codeine Oral. Levothyroxine Sodium Oral. Lisinopril Oral 40 mg, daily. Naproxen Oral. Probiotic Daily Oral. Verapamil HCl 120 mg , daily. Vitamins/Minerals Oral. --13:49 Yuridia Pastrana R.N. Allergies PredniSONE. (flluid around brain) Sulfa Drugs.(Anaphylaxis) --13:49 Yuridia Pastrana R.N. History Arrived by private vehicle. Historian: patient. Accompanied by friend. This occurred today. ( Labs were drawn today and doctor reported critical labs and sent to ER). PAST MEDICAL HX: Last normal menstrual period- 4 days ago. SOCIAL HX: Former smoker, end date 2014. No alcohol use or drug use. No infectious disease exposure. ABUSE ASSESSMENT: No report of abuse. --13:53 Yuridia Pastrana R.N. PROBLEMS: Influenza. Palpitations. Chest Wall Pain. Anemia. Thyroid Disease. Hypertension. --13:49 Yuridia Pastrana R.N. ADDITIONAL SURGERIES: Cholecystectomy. Thyroid Surgery. Tubal Ligation. --13:49 Yuridia Pastrana R.N. Interventions ID band on patient. To treatment room. --13:53 Yuridia Pastrana R.N. PHYSICAL ASSESSMENT 13:53 10/12/16. Ambulatory to room. GENERAL / NEURO / PSYCH: Appears in no acute distress. RESPIRATORY: Respirations not labored. SKIN: Skin is warm. --13:53 Yuridia Pastrana R.N. NURSING PROGRESS NOTES 13:54 10/12/16. Reassurance given. Two patient identifiers checked. Call light placed in reach. Side rails up x 1. Bed placed in lowest position. Brakes of bed on. Patient ready for evaluation- chart flagged. --13:54 Yuridia Pastrana R.N. ( See Blood Transfusion papers attached to the chart.). --18:24 Raf Acosta R.N. 14:35 10/12/2016 Site #1 started via IV in the right antecubital space with an 20g angiocath, with aseptic technique and good blood return; one attempt. Blood drawn: rainbow set. Sent to the lab. Saline lock flushed with 10 mL saline. --18:44 Raf Acosta R.N. DISPOSITION / DISCHARGE 18:44 10/12/2016 Site #1 removed upon discharge. Bandage applied. --18:45 Yuridia Pastrana R.N. 18:45 10/12/16. Departure time: 18:45Feb 2016. Condition at departure: improved. No learning barriers present. Discharge instructions provided and reviewed with the spouse. Patient verbalized understanding. Written instructions provided in [place]. The patient was discharged by the physician. She was discharged home and accompanied by spouse. She left the Emergency Department ambulatory and via private vehicle. Spouse driving. --18:45 Yuridia Pastrana R.N. 18:40 10/12/16. BP: 126/74 (large adult cuff) taken on the left arm, while lying. HR: 77 (regular). RR: 16. O2 saturation: 100%. Temp: 98.3 F (oral). Pain level now: 5/10. Additional comments: SANDOVAL. --18:45 Yuridia Pastrana R.N. 18:45 10/12/16. ( 1 Unit of PRBC's infused without any issues. Patient DC in good health). --18:48 Yuridia Pastrana R.N. Locked/Released at 10/12/2016 18:58 by Yuridia Pastrana R.N.
--- NOTE | 2016-10-16 08:00 | ED MED RECONCILIATION SUMMARY ---
Patient: JOSE SPRING V Medication Reconciliation Report [facility] VisitID: [id number] [address] [place] [address] 41y, F Registration Date/Time: 10/12/2016 Weight: 107.9 kg Height/Length: 66 in. BMI: 38.4 ALLERGIES: PredniSONE, Sulfa Drugs The patient's Home Medications are listed below: CONTINUE TAKING THE FOLLOWING MEDICATIONS: Albuterol Sulfate Inhalation BusPIRone HCl Oral Flonase Nasal FLUoxetine HCl Oral Guaifenesin-Codeine Oral Levothyroxine Sodium Oral Lisinopril Oral 40 mg, daily Naproxen Oral Probiotic Daily Oral Verapamil HCl 120 mg , daily Vitamins/Minerals Oral The source(s) of the original Home Medication information: Not obtained. The following Medications were given to the patient in the Emergency Department: None. The following Medications were prescribed to the patient: None.
--- NOTE | 2016-10-16 08:00 | ED ORDER SUMMARY ---
..... Patient: JOSE SPRING V OrderSheet [facility] VisitID: [id number] [address] [place] [address] 41y, F Registration Date/Time: 10/12/2016 ORDER SHEET Weight: 107.9 kg (stated) Allergies: PredniSONE, Sulfa Drugs GENERAL ORDERS: Type & Cross (anemia) (transfuse for anemia) Urgent (14:36 10/12/2016 Justine COTTRELL) (14:59 Steffanie R.N.) Transfuse PRBCs (1 unit) (14:38 10/12/2016 Steffanie Ham verbal order read back to Justine COTTRELL) (16:58 Steffanie R.N.) MEDICATION ORDERS: IV FLUIDS: ORDER SHEET NOTES: [Electronically signed by Yuridia Pastrana R.N. (18:58 10/12/2016)] [Electronically signed by Venessa Cline MD (07:59 10/16/2016)] [Electronically locked/signed by Yuridia Pastrana R.N. (18:58 10/12/2016)]
--- NOTE | 2016-10-16 08:00 | ED MAR SUMMARY ---
..... Medication Administration Record [facility] [address], [place] [id number] Patient: BIBIANASULAIMANMARCELLA TAVAREZFANI Winnie Visit ID: [id number] 41y, F Weight: 107.9 kg Height/Length: 66 in BMI: 38.4 ALLERGIES: PredniSONE, Sulfa Drugs
--- NOTE | 2016-10-16 08:00 | ED MED RECONCILIATION SUMMARY ---
Patient: JOSE SPRING V Medication Reconciliation Report [facility] VisitID: [id number] [address] [place] [address] 41y, F Registration Date/Time: 10/12/2016 Weight: 107.9 kg Height/Length: 66 in. BMI: 38.4 ALLERGIES: PredniSONE, Sulfa Drugs The patient's Home Medications are listed below: CONTINUE TAKING THE FOLLOWING MEDICATIONS: Albuterol Sulfate Inhalation BusPIRone HCl Oral Flonase Nasal FLUoxetine HCl Oral Guaifenesin-Codeine Oral Levothyroxine Sodium Oral Lisinopril Oral 40 mg, daily Naproxen Oral Probiotic Daily Oral Verapamil HCl 120 mg , daily Vitamins/Minerals Oral The source(s) of the original Home Medication information: Not obtained. The following Medications were given to the patient in the Emergency Department: None. The following Medications were prescribed to the patient: None.
--- NOTE | 2016-10-16 08:00 | ED DISCHARGE INSTRUCTIONS ---
Patient: JOSE SPRING V General Instructions [facility] VisitID: [id number] [place] [address] 41y, F Registration Date/Time: 10/12/2016 Chronic iron deficiency anemia (with acute exacerbation). INSTRUCTIONS Drink plenty of fluids. (You have been given a unit of blood today to bring your hemoglobin up to where it was before. Please follow up with your doctor to determine further management of your anemia.). Warnings: GENERAL WARNINGS: Return or contact your physician immediately if your condition worsens or changes unexpectedly, if not improving as expected, or if other problems arise. Your Current Medications: CONTINUE TAKING THE FOLLOWING MEDICATIONS: Albuterol Sulfate Inhalation. BusPIRone HCl Oral. Flonase Nasal. FLUoxetine HCl Oral. Guaifenesin-Codeine Oral. Levothyroxine Sodium Oral. Lisinopril Oral : 40 mg daily. Naproxen Oral. Probiotic Daily Oral. Verapamil HCl : 120 mg daily. Vitamins/Minerals Oral. Follow-up: Follow up with your doctor. Call for the next available appointment. Understanding of the discharge instructions verbalized by patient. ADDITIONAL INFORMATION Anemia [Type Not Specified, Adult] Red blood cells carry oxygen to the tissues of the body. Anemia is a condition where the size or number of red blood cells in the body is reduced. Iron is needed to make red blood cells. The most common cause of anemia is iron deficiency. This may be due to: i) Blood loss (heavy menstrual periods or bleeding from the stomach or intestines); or, ii) Not eating enough iron-containing foods. Other causes of anemia include certain vitamin deficiencies, chronic kidney disease or certain other chronic illnesses. Anemia causes a feeling of being tired and run down. When anemia becomes severe, the skin becomes pale and there is shortness of breath with exertion. Headaches, dizziness, leg cramps with exertion, drowsiness and fatigue are other common symptoms. Home Care: If you are having symptoms of anemia listed above: -- Do not overexert yourself. -- Talk to your doctor before flying on an airplane or traveling to high altitudes. Follow Up with your doctor as advised by our staff. Additional blood testing may be required to determine the exact cause of your anemia. If testing was done on this visit, it may take several days to get all of the results. You may call this facility or follow up with your own doctor to get the results. Get Prompt Medical Attention if any of the following occur: -- Shortness of breath or chest pain -- Worsening of dizziness, fainting -- Vomiting blood or passing red or black-colored stool You have been given the following additional information: Anemia, Type Not Specified (Adult) (Electronically signed by Venessa Cline MD 10/16/2016 7:59)
--- NOTE | 2016-10-16 08:00 | ED CLINICAL REPORT ---
Clinical Report - Physicians/Mid Levels [facility] [address] [place] [address] 10/12/2016 13:32 Patient: JOSE SPRING V Time Seen: 13:45. Arrived- By private vehicle. Historian- patient. HISTORY OF PRESENT ILLNESS Chief Complaint: DIZZINESS and WEAKNESS. Not described as a sense of rotation, movement, falling or confusion or feeling off balance. Described as feeling light-headed and weak all over. This started about 3 days ago and is still present. Severity described as moderate at its maximum. When seen in the E.D., severity described as moderate. Modifying factors- worsened by standing up. Relieved by rest. No nausea or vomiting. 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 Similar symptoms previously: Recent medical care: The patient was seen recently by a health care provider. ( PT has been under treatment for anemia of uncertain etiology, per pt. She has previously received iron infusions and transfusions for this. She states her doctor did labs today, and called pt at home, advising her to come to the ED because of low H/H.). REVIEW OF SYSTEMS No headache, double vision, fainting episodes, head injury or chest pain. No palpitations, black stools, abnormal vaginal bleeding, numbness or bloody stools. No fever, sore throat, cough, difficulty breathing or abdominal pain. No diarrhea, difficulty with urination, skin rash, enlarged lymph nodes or chills. No joint pain. The patient has had weakness. No difficulty walking. All systems otherwise negative, except as recorded above. PAST HISTORY Problems: Anemia. Influenza. Palpitations. Thyroid Disease. Hypertension. Additional Surgeries: Cholecystectomy. Thyroid Surgery. Tubal Ligation. Medications: Guaifenesin-Codeine Oral. Levothyroxine Sodium Oral. Lisinopril Oral 40 mg, daily. Naproxen Oral. Probiotic Daily Oral. Verapamil HCl 120 mg , daily. Vitamins/Minerals Oral. Albuterol Sulfate Inhalation. BusPIRone HCl Oral. Flonase Nasal. FLUoxetine HCl Oral. Allergies: PredniSONE. (flluid around brain) Sulfa Drugs.(Anaphylaxis). SOCIAL HISTORY Former smoker, end date 2014. No alcohol use or drug use. ADDITIONAL NOTES The nursing notes have been reviewed. PHYSICAL EXAM Vital Signs: 10/12/2016 13:47 BP: 141/75. HR: 89. RR: 18. O2 saturation: 99%. Temp: 99.7 F. Pain level now: 5/10. Have been reviewed. Appearance: Alert. No acute distress. Eyes: Pupils equal, round and reactive to light. No nystagmus. Extraocular movements normal. ENT: Normal ENT inspection. Moist mucous membranes. Neck: Normal inspection. CVS: Normal heart rate and rhythm. Heart sounds normal. Pulses normal. Respiratory: No respiratory distress. Breath sounds normal. Abdomen: Soft and nontender. Back: Normal inspection. No CVA tenderness. Skin: Skin warm and dry. Normal skin color. No rash. Normal skin turgor. Extremities: Extremities exhibit normal ROM. No lower extremity edema. Neuro: Alert. Oriented X 3. Mood/affect normal. Speech normal. Cranial nerves normal (as tested). No cerebellar findings. No motor deficit. No sensory deficit. LABS, X-RAYS, AND EKG Laboratory Tests: Hgb/Hct: (RAUL: 10/12/2016 14:55) ( [facility] 10/12/2016 15:15) Final results Test Result Flag Units (Reference) HEMOGLOBIN 7.1 L gm/dL (12.0-16.0) HEMATOCRIT 23.5 L % (36.0-46.0) Type & Cross: (RAUL: 10/12/2016 14:55) ( [facility] 10/12/2016 16:14) IP Test Result Flag Units (Reference) LEUKOREDUCED PACKED CELLS [id number] OP ISSUED 10/12/16 1612 PATIENT BLOOD TYPE O Positive Above is a corrected result. Previously reported on ( MsgRcvd 10/12/2016 15:58) as: PATIENT BLOOD TYPE O Positive ANTIBODY SCREEN NEGATIVE Above is a corrected result. Previously reported on ( MsgRcvd 10/12/2016 15:58) as: ANTIBODY SCREEN NEGATIVE . Pulse Oximetry: 10/12/2016 13:47 O2 saturation: 99%. (FIO2 - room air). Interpretation: normal. PROGRESS AND PROCEDURES Course of Care: I did receive the pt's clinic labs by fax, and found that her hemoglobin this morning had been 7, and recent baseline has been 9-10. I did type and cross the pt for a single unit of packed RBCs, and she reported feeling much better after transfusion. As this is a long-standing and ongoing issue for the pt, I did feel she was stable for d/c home. Patient and family counseled in person regarding the patient's stable condition, test results, diagnosis and need for follow-up. Concerns were addressed. Old medical records reviewed. Disposition: Discharged. Condition: stable and improved. CLINICAL IMPRESSION Chronic iron deficiency anemia (with acute exacerbation). INSTRUCTIONS Drink plenty of fluids. (You have been given a unit of blood today to bring your hemoglobin up to where it was before. Please follow up with your doctor to determine further management of your anemia.). Warnings: GENERAL WARNINGS: Return or contact your physician immediately if your condition worsens or changes unexpectedly, if not improving as expected, or if other problems arise. Your Current Medications: CONTINUE TAKING THE FOLLOWING MEDICATIONS: Albuterol Sulfate Inhalation. BusPIRone HCl Oral. Flonase Nasal. FLUoxetine HCl Oral. Guaifenesin-Codeine Oral. Levothyroxine Sodium Oral. Lisinopril Oral : 40 mg daily. Naproxen Oral. Probiotic Daily Oral. Verapamil HCl : 120 mg daily. Vitamins/Minerals Oral. Follow-up: Follow up with your doctor. Call for the next available appointment. Understanding of the discharge instructions verbalized by patient. (Electronically signed by Venessa Cline MD 10/16/2016 7:59)
--- NOTE | 2016-10-16 08:00 | ED CLINICAL REPORT ---
Clinical Report - Physicians/Mid Levels [facility] [address] [place] [address] 10/12/2016 13:32 Patient: JOSE SPRING V Time Seen: 13:45. Arrived- By private vehicle. Historian- patient. HISTORY OF PRESENT ILLNESS Chief Complaint: DIZZINESS and WEAKNESS. Not described as a sense of rotation, movement, falling or confusion or feeling off balance. Described as feeling light-headed and weak all over. This started about 3 days ago and is still present. Severity described as moderate at its maximum. When seen in the E.D., severity described as moderate. Modifying factors- worsened by standing up. Relieved by rest. No nausea or vomiting. 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 Similar symptoms previously: Recent medical care: The patient was seen recently by a health care provider. ( PT has been under treatment for anemia of uncertain etiology, per pt. She has previously received iron infusions and transfusions for this. She states her doctor did labs today, and called pt at home, advising her to come to the ED because of low H/H.). REVIEW OF SYSTEMS No headache, double vision, fainting episodes, head injury or chest pain. No palpitations, black stools, abnormal vaginal bleeding, numbness or bloody stools. No fever, sore throat, cough, difficulty breathing or abdominal pain. No diarrhea, difficulty with urination, skin rash, enlarged lymph nodes or chills. No joint pain. The patient has had weakness. No difficulty walking. All systems otherwise negative, except as recorded above. PAST HISTORY Problems: Anemia. Influenza. Palpitations. Thyroid Disease. Hypertension. Additional Surgeries: Cholecystectomy. Thyroid Surgery. Tubal Ligation. Medications: Guaifenesin-Codeine Oral. Levothyroxine Sodium Oral. Lisinopril Oral 40 mg, daily. Naproxen Oral. Probiotic Daily Oral. Verapamil HCl 120 mg , daily. Vitamins/Minerals Oral. Albuterol Sulfate Inhalation. BusPIRone HCl Oral. Flonase Nasal. FLUoxetine HCl Oral. Allergies: PredniSONE. (flluid around brain) Sulfa Drugs.(Anaphylaxis). SOCIAL HISTORY Former smoker, end date 2014. No alcohol use or drug use. ADDITIONAL NOTES The nursing notes have been reviewed. PHYSICAL EXAM Vital Signs: 10/12/2016 13:47 BP: 141/75. HR: 89. RR: 18. O2 saturation: 99%. Temp: 99.7 F. Pain level now: 5/10. Have been reviewed. Appearance: Alert. No acute distress. Eyes: Pupils equal, round and reactive to light. No nystagmus. Extraocular movements normal. ENT: Normal ENT inspection. Moist mucous membranes. Neck: Normal inspection. CVS: Normal heart rate and rhythm. Heart sounds normal. Pulses normal. Respiratory: No respiratory distress. Breath sounds normal. Abdomen: Soft and nontender. Back: Normal inspection. No CVA tenderness. Skin: Skin warm and dry. Normal skin color. No rash. Normal skin turgor. Extremities: Extremities exhibit normal ROM. No lower extremity edema. Neuro: Alert. Oriented X 3. Mood/affect normal. Speech normal. Cranial nerves normal (as tested). No cerebellar findings. No motor deficit. No sensory deficit. LABS, X-RAYS, AND EKG Laboratory Tests: Hgb/Hct: (RAUL: 10/12/2016 14:55) ( [facility] 10/12/2016 15:15) Final results Test Result Flag Units (Reference) HEMOGLOBIN 7.1 L gm/dL (12.0-16.0) HEMATOCRIT 23.5 L % (36.0-46.0) Type & Cross: (RAUL: 10/12/2016 14:55) ( [facility] 10/12/2016 16:14) IP Test Result Flag Units (Reference) LEUKOREDUCED PACKED CELLS [id number] OP ISSUED 10/12/16 1612 PATIENT BLOOD TYPE O Positive Above is a corrected result. Previously reported on ( MsgRcvd 10/12/2016 15:58) as: PATIENT BLOOD TYPE O Positive ANTIBODY SCREEN NEGATIVE Above is a corrected result. Previously reported on ( MsgRcvd 10/12/2016 15:58) as: ANTIBODY SCREEN NEGATIVE . Pulse Oximetry: 10/12/2016 13:47 O2 saturation: 99%. (FIO2 - room air). Interpretation: normal. PROGRESS AND PROCEDURES Course of Care: I did receive the pt's clinic labs by fax, and found that her hemoglobin this morning had been 7, and recent baseline has been 9-10. I did type and cross the pt for a single unit of packed RBCs, and she reported feeling much better after transfusion. As this is a long-standing and ongoing issue for the pt, I did feel she was stable for d/c home. Patient and family counseled in person regarding the patient's stable condition, test results, diagnosis and need for follow-up. Concerns were addressed. Old medical records reviewed. Disposition: Discharged. Condition: stable and improved. CLINICAL IMPRESSION Chronic iron deficiency anemia (with acute exacerbation). INSTRUCTIONS Drink plenty of fluids. (You have been given a unit of blood today to bring your hemoglobin up to where it was before. Please follow up with your doctor to determine further management of your anemia.). Warnings: GENERAL WARNINGS: Return or contact your physician immediately if your condition worsens or changes unexpectedly, if not improving as expected, or if other problems arise. Your Current Medications: CONTINUE TAKING THE FOLLOWING MEDICATIONS: Albuterol Sulfate Inhalation. BusPIRone HCl Oral. Flonase Nasal. FLUoxetine HCl Oral. Guaifenesin-Codeine Oral. Levothyroxine Sodium Oral. Lisinopril Oral : 40 mg daily. Naproxen Oral. Probiotic Daily Oral. Verapamil HCl : 120 mg daily. Vitamins/Minerals Oral. Follow-up: Follow up with your doctor. Call for the next available appointment. Understanding of the discharge instructions verbalized by patient. (Electronically signed by Venessa Cline MD 10/16/2016 7:59)
--- NOTE | 2016-10-16 08:00 | ED MAR SUMMARY ---
..... Medication Administration Record [facility] [address] [place], [place] [id number] Patient: BIBIANASULAIMANMARCELLA TAVAREZFANI Winnie Visit ID: [id number] 41y, F Weight: 107.9 kg Height/Length: 66 in BMI: 38.4 ALLERGIES: PredniSONE, Sulfa Drugs
--- NOTE | 2016-10-16 08:00 | ED ORDER SUMMARY ---
..... Patient: JOSE SPRING V OrderSheet [facility] VisitID: [id number] [address] [place] [address] 41y, F Registration Date/Time: 10/12/2016 ORDER SHEET Weight: 107.9 kg (stated) Allergies: PredniSONE, Sulfa Drugs GENERAL ORDERS: Type & Cross (anemia) (transfuse for anemia) Urgent (14:36 10/12/2016 Justine COTTRELL) (14:59 Steffanie R.N.) Transfuse PRBCs (1 unit) (14:38 10/12/2016 Steffanie Ham verbal order read back to Justine COTTRELL) (16:58 Steffanie R.N.) MEDICATION ORDERS: IV FLUIDS: ORDER SHEET NOTES: [Electronically signed by Yuridia Pastrana R.N. (18:58 10/12/2016)] [Electronically signed by Venessa Cline MD (07:59 10/16/2016)] [Electronically locked/signed by Yuridia Pastrana R.N. (18:58 10/12/2016)]
== END 2016-10-12 18:45 | disposition home or self-care (01) ==
LOC: ED SRH 13:31
DX: D50.9 Iron deficiency anemia, unspecified (principal); I10 Essential (primary) hypertension; E07.9 Disorder of thyroid, unspecified; Z79.899 Other long term (current) drug therapy; Z79.1 Long term (current) use of non-steroidal anti-inflammatories (NSAID); Z87.891 Personal history of nicotine dependence; Z88.2 Allergy status to sulfonamides; Z88.8 Allergy status to other drugs, medicaments and biological substances
CPT/HCPCS: 90001; 90155; 91004; 91162; 91163; 91544

== ENCOUNTER 2016-11-08 10:02 | Outpatient (CLI) | payer OTHER ==
--- NOTE | 2016-11-08 11:41 | DIAGNOSTIC IMAGING REPORT ---
PROCEDURE: US COMPLETE PELVIC W/TRANSVAG INDICATION: Bleeding. Severe anemia. (Prior cholecystectomy). TECHNIQUE: Transabdominal and endovaginal ahn scale and color Doppler sonographic images of the female pelvis were obtained. COMPARISON: None. FINDINGS: TRANSABDOMINAL SCANS: Uterus is mildly enlarged (10.4 x 4.6 x 7.1 cm). Right ovary is seen transabdominally and is normal (2.3 cm). Left kidney is of normal size and morphology (12.5 cm). Right kidney is of normal size (11.8 cm). However, there is a 3.8 cm ovoid complex cystic and solid lesion adjacent to the lower pole right kidney. TRANSVAGINAL SCANS: The uterus has a heterogeneous appearance of compatible with generalized fibroid change, with out discrete fibroid. Endometrial thickness is normal for premenopausal patient (14 mm). However, there is a 1.3 cm ovoid hyperechoic nodule in the left endometrial canal consistent with endometrial polyp. Left ovary is normal (3.8 cm). No evidence of free fluid. IMPRESSION: 1. Mild enlargement the uterus secondary to general fibroid changes (without discrete fibroid). 2. There is a 1.3 cm hyperechoic nodule in the left endometrial canal consistent with endometrial polyp (benign most likely, malignant less likely). 3. Normal ovaries. 4. There is a 3.8 cm complex cystic and solid lesion caudal and medial to the lower pole of the right kidney. Etiology is not entirely clear, although this could represent an exophytic renal mass, neurogenic mass, enlarged lymph node, or duodenal mass. CT abdomen and pelvis with oral and intravenous contrast is recommended to further evaluate.
== END 2016-11-08 23:00 ==
LOC: US SRH 10:02
DX: D25.9 Leiomyoma of uterus, unspecified (principal); D26.1 Other benign neoplasm of corpus uteri; N28.1 Cyst of kidney, acquired; Z90.49 Acquired absence of other specified parts of digestive tract